=== PATIENT | female | born 1990 | race American Indian/Alaskan Native ===

== ENCOUNTER 2019-02-20 07:49 | Emergency (ER) | payer SELFPAY ==
[2019-02-20 07:59] VITALS: BP 117/75
--- NOTE | 2019-02-20 08:46 | Emergency Department Report ---
HPI - General Chief Complaint: Sore Throat Time Seen by Provider: 02/20/19 08:13 - HPI HPI: 28-year-old -[place] female presents to the emergency department with a 2 day history of a sore throat. She is able to swallow but has pain with doing so. No fever. She has not taken anything for her symptoms prior to presentation. No past medical history. No primary care physician. Recent travel or sick contacts at home. ED Past Medical Hx - Past Medical History Previous Medical History?: No - Surgical History Past Surgical History?: No - Social History Smoking Status: Never Smoker Substance Use Type: None - Medications Home Medications: Home Medications Medication Instructions Recorded Confirmed Last Taken Type ALBUTEROL Inhaler (OR & NICU) 1 puff IH Q4-6H PRN #1 inha 07/20/13 Unknown Rx [ProAir HFA Inhaler] guaiFENesin/CODEINE [Robitussin AC] 5 ml PO Q4-6H PRN #50 ml 07/20/13 Unknown Rx predniSONE [Deltasone] 2 tab PO BID #8 tab 07/20/13 Unknown Rx ED Review of Systems ROS: Stated complaint: SORE THROAT Other details as noted in HPI Comment: All other systems reviewed and negative Constitutional: denies: chills, fever ENT: throat pain. denies: ear pain Respiratory: denies: shortness of breath, wheezing Gastrointestinal: denies: nausea, vomiting Skin: denies: rash, lesions Neurological: denies: headache, weakness Physical Exam - Physical Exam Vital Signs: Vital Signs 02/20/19 07:52 Temperature 98.5 F Pulse Rate 103 H Respiratory 18 Rate Blood Pressure 117/75 O2 Sat by Pulse 98 Oximetry Physical Exam: GENERAL: The patient is well-developed well-nourished. HENT: Normocephalic. Atraumatic. Patient has moist mucous membranes. There is mild bilateral tonsillar hypertrophy and there is erythema. No exudates. No drooling or trismus. Normal voice. EYES: Extraocular motions are intact. Pupils equal reactive to light bilaterall y. NECK: Supple. Trachea is midline. ABDOMEN: There is no abdominal distention. SKIN: Skin is warm and dry. NEURO: The patient is awake, alert, and oriented. The patient is cooperative. MUSCULOSKELETAL: There is no tenderness or deformity. There is no evidence of acute injury. ED Course Vital Signs 02/20/19 07:52 Temperature 98.5 F Pulse Rate 103 H Respiratory 18 Rate Blood Pressure 117/75 O2 Sat by Pulse 98 Oximetry ED Medical Decision Making - Medical Decision Making Patient presents with a 2 day history of sore throat. She has mild bilateral tonsillar hypertrophy. There is moderate erythema. No exudates. No drooling or trismus. Normal voice. Vital signs stable throughout ED course including being afebrile. Negative on rapid strep him a however throat does look angry and red. Patient will be treated with a shot of Bicillin. Given referrals for primary care. - Differential Diagnosis strep pharyngitis, viral pharyngitis, mononucleosis Critical Care Time: No Critical care attestation.: If time is entered above; I have spent that time in minutes in the direct care of this critically ill patient, excluding procedure time. ED Disposition Clinical Impression: Strep pharyngitis Disposition: DC-01 TO HOME OR SELFCARE Is pt being admited?: No Condition: Stable Instructions: Strep Throat (ED) Additional Instructions: Please follow-up with a primary care physician in the next few days. Return to the emergency Department with any worsening of your symptoms or any acute distress. Do not share any food or drinks with anyone as you can spread infection. Please wash your hands thoroughly and often. Referrals: LENORA MADRIGAL MD [Staff Physician] - 3-5 Days [facility] [Outside] - 3-5 Days Time of Disposition: 08:59
[2019-02-20] MEDS ORDERED: PENICILLIN G BENZATHINE 1.2 MILLION UNIT/2 ML INJ IM ONE (08:57)
== END 2019-02-20 09:26 | disposition home or self-care (01) ==
LOC: ED 07:49
DX: J02.0 Streptococcal pharyngitis (principal)
CPT/HCPCS: 87116; 87430; 96372; 99283; J0561